=== PATIENT | male | born 1985 | race Caucasian/White ===

== ENCOUNTER 2019-12-14 17:16 | Emergency (ER) | payer SELFPAY ==
[~2019-12-14] VITALS: Ht 177.8 cm; Wt 100.0 kg
[2019-12-14 17:29] VITALS: TEMP 97.6
[2019-12-14 17:41] LABS: BASO % 0.4 % (0.0-2.0); EOS # 0.2 (0.0-0.7); EOS % 2.5 % (0-4.0); GRAN # 4.8 (1.4-6.5); GRAN % 51.8 % (42.2-75.2); HEMATOCRIT 44.5 % (42.0-52.0); LYMPH # 3.6 (1.2-3.4); MEAN CELL VOLUME 86 fl (80.0-100.0); MEAN CORPUSCULAR HEMOGLOBIN 29 pg (27.0-31.0); MEAN CORPUSCULAR HGB CONC 34 g/dl (33.0-37.0); MEAN PLATELET VOLUME 9.7 fl (7.4-10.4); MONO # 0.6 (0.1-0.6); PLATELET COUNT 264 K/mm3 (130-400); RED BLOOD COUNT 5.15 M/mm3 (4.20-5.60); REDCELL DISTRIBUTION WIDTH-CV 13.1 % (11.5-14.5)
[2019-12-14 17:56] LABS: ALBUMIN 4.8 gm/dL (3.5-5.0); BILIRUBIN,TOTAL 0.4 mg/dL (0.0-1.0); CALCIUM 9.8 mg/dL (8.4-10.2); CREATININE, serum 1.15 (0.66-1.25); POTASSIUM 3.7 mmol/L (3.4-5.0); TOTAL PROTEIN 7.8 gm/dL (6.4-8.2)
[2019-12-14] MEDS ORDERED: NORCO 325 MG-51 TAB PO (18:58)
[2019-12-14] MEDS ORDERED: CEPHALEXIN500 M1 PO (18:58)
[2019-12-14 19:23] VITALS: BP 141/83; PULSE 74
== END 2019-12-14 19:55 | disposition home or self-care (01) ==
LOC: COL.ER 17:16
PROVIDERS: Family Medicine
DX: S42.022A Displaced fracture of shaft of left clavicle, initial encounter for closed fracture (principal); R40.2410 Glasgow coma scale score 13-15, unspecified time; V86.05XA Driver of 3- or 4- wheeled all-terrain vehicle (ATV) injured in traffic accident, initial encounter
CPT/HCPCS: J0690; J3010; J7030; Q9967